=== PATIENT | male | born 1935 | race Caucasian/White ===

== ENCOUNTER 2024-03-02 20:20 | Inpatient (IN) | payer MEDICARE, BC, SELFPAY ==
[2024-03-02] VITALS (19 sets, daily range): BP systolic 77–206; BP diastolic 43–186; BMI 31.0; BMI 30.4
[2024-03-02 17:27] LABS: % Basophils 0.5 % (0-2); % Eosinophils 0.8 % (0-6); % Immature Granulocytes 0.6 % (0-0.5); % Monocytes 8.7 % (1.7-9.3); % Neutrophils 77.4 % (42.2-75.2); Absolute Basophils 0.1 10^3/uL (0-0.2); Absolute Eosinophils 0.1 10^3/uL (0-0.7); Absolute Immature Granulocytes 0.1 10^3/uL (0-0.05); Absolute Lymphocytes 1.3 10^3/uL (1.2-3.4); Absolute Monocytes 0.9 10^3/uL (0.1-0.6); Absolute Neutrophils 8.3 10^3/uL (1.4-6.5); Hematocrit 41.9 % (39.0-52.0); Hemoglobin 14.5 g/dL (13.0-18.0); Mean Corp Hgb Conc. 34.6 g/dL (33.0-37.0); Mean Corpuscular Hgb 31.2 pg (27.0-31.0); Mean Corpuscular Volume 90.1 fL (80.0-94.0); Mean Platelet Volume 9.9 fL (7.4-10.4); Nucleated Red Blood Cells % 0 % (-); Platelet Count 260 10^3/uL (130-400); Red Blood Cell Count 4.65 10^6/uL (4.70-6.10); White Blood Cell Count 10.7 10^3/uL (4.8-10.8)
[2024-03-02] MEDS: NSS 500 IV (17:31)
--- NOTE | 2024-03-02 17:33 | ED.GENMED ---
History of Present Illness
General
Chief Complaint: Dizziness
Source: patient
Time Seen by Provider: 03/02/24 17:20
History of Present Illness
History of Present Illness:
88-year-old male brought to the emergency room by ambulance from [employer]. Patient was evidently at [employer] with his caregiver when he began to feel dizzy and lightheaded. Paramedics found him to be bradycardic in the 40s. They measured a
blood pressure of 84/40. They gave the patient 1 mg of atropine and started IV fluids. Patient arrives here awake, alert. He has dementia so is unable to provide any significant history but denies chest pain, shortness of breath.
Phy Exam
Physical Exam
Physical Exam:
General: Awake, Alert, Oriented X2. No acute distress, appears stated age
Vitals: unremarkable
Head: Atraumatic
Eyes: Pupils equal, EOMI
Throat: Airway intact, no exudates, topical
Neck: Trachea midline
Lungs: Clear and equal b/l
Heart: Bradycardic, regular rate, 2/6 systolic murmur murmurs
Abd: Soft, Nontender, No pulsatile mass
Neuro: Nonfocal
Skin: Warm, dry, no rash
Extremities: pulses equal b/l, no edema
Course
Orders/Labs/Results
Orders:
Orders
03/02/24 17:10
Electrocardiogram (*1) Urgent
Reason for Study: Chest Pain
Cardiac Monitoring- Treatment ONCE
EKG- Treatment ONCE
IV Insert/Care/Rem.- Treatment PRN
O2 Therapy [RESP] Urgent
Titrate/Wean O2 to maintain O2 sat greater than (%): 90
Special Instructions: Maintain sats >/=90%
Pulse Ox/spot Check [RESP] Urgent
Quantity: 1
Special Instructions: ON ROOM AIR
03/02/24 17:20
Complete Blood Count/With Diff Urgent
Comprehensive Metabolic Panel Urgent
Digoxin Urgent
Comment: ADD ON
Prothrombin Time Urgent
Troponin I Urgent
03/02/24 17:30
0.9% Sodium Chloride 500 ml [Nss] 500 ml IV BOLUS
03/02/24 18:26
Add On- LAB Urgent
Tests Added?: Digoxin level
03/02/24 19:43
Admit/Transfer Patient As Directed
Co-Sign Provider:
Level of Care: Inpatient admission
Assign to:: IVU
Physician / Group: Andrews
Diagnosis: Symptomatic Bradycardia
Reason for Hospitalization: Symptomatic Bradycardia
Expected length of stay greater than two midnights?: Yes
ELOS- Estimated Length of Stay in days: 2
I certify the patient meets the requirements for IP care: Yes
PRN Pain Medication Management As Directed
May give lesser potent ordered pain med per pt: Yes
preference::
Protocol:: Medication orders for pain may be administered in a
manner that supports deferring to patient preference
when the pt is:
- Requesting an ordered lesser potent pain medication.
Least to most potent pain medications are defined
as: acetaminophen < NSAID < tramadol < opioids
(morphine, oxycodone, hydromorphone).
- Requesting a lesser dose of the same medication IF
ORDERED.
- Requesting a less intrusive route of administration
if both routes are prescribed by the provider (PO <
IV).
03/02/24 19:45
COVID-19 Antigen Urgent
Source: Nasal Swab
CXR Port [CR Chest Portable - 1 View] Urgent
Comment:
Reason For Exam: Syncope, SOB
Reason Study Needs to be Portable: Unable to Transport
03/02/24 19:47
Code Status As Directed
Resuscitation Status: Full Code
03/02/24 19:56
Pro-BNP [NT-proBNP] Urgent
Abnormal Lab Results
03/02/24
17:20
RBC 4.65 L 10^6/uL
(4.70-6.10)
MCH 31.2 H pg
(27.0-31.0)
Abs Immat Gran (auto) 0.1 H 10^3/uL
(0-0.05)
Absolute Neuts (auto) 8.3 H 10^3/uL
(1.4-6.5)
Absolute Monos (auto) 0.9 H 10^3/uL
(0.1-0.6)
Immature Gran % 0.6 H %
(0-0.5)
Neutrophils % 77.4 H %
(42.2-75.2)
Lymphocytes % 12.0 L %
(20.5-51.1)
PT 33.7 H Sec
(11.4-14.6)
BUN 31 H mg/dl
(9-20)
Glucose 105 H mg/dl
(70-99)
Digoxin 0.4 L ng/ml
(0.8-2.0)
03/02/24 17:20
03/02/24 17:20
Vital Signs
Initial and Last Documented VS:
Initial Vital Signs
Pulse Resp
46 17
03/02/24 17:09 03/02/24 17:09
Last Documented Vital Signs
Temp Pulse Resp BP Pulse Ox
98.3 F 72 15 115/74 96
03/02/24 17:23 03/02/24 18:30 03/02/24 18:45 03/02/24 18:45 03/02/24 18:45
MDM/Problems Addressed
Differential Diagnosis Includes:
Tachybradycardia syndrome, excessive beta-benito effect, dig toxicity, electrolyte abnormality
MDM/Problems Addressed:
Patient presents with a near syncopal event as well as bradycardia. On the monitor he is observed to have pauses up to 3 to 4 seconds. He has no chest pain. He is mentating. He was hypotensive in the field but arrives here with a normal blood
pressure. He did have a couple measurements' blood pressure which responded to IV fluid. Labs show a subtherapeutic digoxin level. Electrolytes are normal. Patient will be hospitalized for close monitoring of his heart rate and blood pressure.
Cardiology consultation obtained. Dr. Spear came to evaluate the patient.
Chronic conditions affecting care: HTN and Arrhythmia
*Radiology
Radiology exam reviewed: radiology read reviewed
*Pulse Oximetry
Patient hypoxic: no
*EKG
Interpreted by ED Provider?: Yes
Interpretation: abnormal
Heart Rate: 45
Rate: bradycardiac
Rhythm: junctional
QRS Pattern: normal QRS
Ischemia: non-specific ST changes
*Foam Rubber Curer Interpretation
Rate: bradycardiac
Rhythm: junctional
*Critical Care Note
Total Time (30-74mins, 75-104mins- exclusive of procedures): 45 min
comment:
Critical care statement: A total of 45 minutes of critical care time was provided for this patient. This includes management of unstable vital signs, evaluation of the patient at bedside, reviewing the patient's pertinent medical records, discussion
with consultants, review of old EKGs and review of pertinent medical records. This time with separate from time utilized to perform the aforementioned documented procedures
ED Attending Note
-
Portions of this chart may have been created with voice recognition software.� Occasional wrong word or��sound alike� substitutions may have occurred due to the inherent limitations of voice recognition software.
Discharge Plan
Departure
Patient Disposition: Admit
Date of Disposition: 03/02/24
Time of Disposition: 19:12
Admit to: ICU
Presentation/result/management discussed w/ accepting MD/DO: Hospitalist
Condition: Serious
Discharge Problem:
Near syncope, Bradycardia
Interventions
Interventions:
*Risk Screen - Suicide Last Done: 03/02/24 17:11
*General Assessment Last Done: 03/02/24 17:11
*Neglect/Abuse Screening Last Done: 03/02/24 17:11
ED- Fall Risk Assessment Last Done: 03/02/24 17:11
*ED COVID-19 Vaccine History Last Done: 03/02/24 18:17
ED- Neurological Assessment Last Done: 03/02/24 17:12
ED- Cardiac Assessment Last Done: 03/02/24 17:25
ED Swallowing Screen Last Done: 03/02/24 17:31
[2024-03-02 17:36] LABS: INR 3.32; PT 33.7 Sec (11.4-14.6)
[2024-03-02 17:42] LABS: ALT (SGPT) 25 U/L (0-50); AST (SGOT) 32 U/L (17-59); Albumin 3.9 g/dl (3.5-5.0); Alkaline Phosphatase 86 U/L (38-126); Blood Urea Nitrogen 31 mg/dl (9-20); Calcium 9.1 mg/dl (8.4-10.2); Carbon Dioxide 28 mmol/L (22-30); Chloride 102 mmol/L (98-107); Estimated Creatinine Clearance 44 ml/min; Glucose 105 mg/dl (70-99); Potassium 4.6 mmol/L (3.5-5.1); Sodium 141 mmol/L (135-145); Total Bilirubin 0.7 mg/dl (0.2-1.3); Total Protein 6.6 g/dl (6.3-8.2); eGFR 58.17
[2024-03-02 17:53] LABS: Troponin I 0.018 ng/ml
[2024-03-02 19:01] LABS: Digoxin 0.4 ng/ml (0.8-2.0)
--- NOTE | 2024-03-02 19:17 | CON.CAR ---
Consultation
Consultation Request
Date/Time Consultation Requested: 03/02/2024 7 PM
Date/Time Consultation Performed: 03/02/2024 7:15 PM
Requesting Provider: Dr. Hickey
Performing Provider: Dr. Branch
Reason for Consultation: Bradycardia, syncope
Medical History
-
History of Present Illness:
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
88-year-old male with a history of paroxysmal atrial fibrillation who presents near syncope. History obtained by his cyber systems administrator who was with him today. Apparently patient was in [employer] and shortly after getting in [employer] felt dizzy and was
a little confused his cyber systems administrator was able to problem up against the wall and then get him into a scooter but then he still felt weak and dizzy and sometimes his head was slumped down but no clear syncope. Brought to ER by ambulance patient was noted
to be bradycardic. Question of whether patient was given epinephrine or atropine en route. Initial blood pressure was stable per Dr. Hickey's report but then he had some hypotension without significant change in rhythm. This responded to IV
fluids. Blood pressure has since remained stable. Heart rate is currently 60 bpm. Patient is in atrial fibrillation has had some asymptomatic pauses with longest being 3.7 seconds in the ER.. Initial ECG showed atrial fibrillation with slow
ventricular response/junctional escape with a heart rate of 45 bpm.
Patient has a history of paroxysmal atrial fibrillation it sounds as if there has been issues with accelerated rates and there were discussions about a pacemaker in the past but then rates became more controlled. Then about 3 months ago he was
relatively bradycardic with a heart rate of 60 bpm which was much lower than his heart rates normal ER they held his meds for a day and then resume them and his heart rates seem to be stable. He has some issues with venous insufficiency and some
chronic lower extremity edema. He reportedly had an echocardiogram which showed good heart function and good valves it sounds as if there was some evidence of pulmonary hypertension. Decision was made to increase patient's diuretic a week ago from
Lasix 20 mg a day to Lasix 40 mg a day
Review of systems he has had an infection involving his left ear and has been on antibiotics for a week ear is still erythematous. No fevers
No rate control medications include Cardizem 120 mg a day metoprolol and digoxin. Digoxin level 0.4. Anticoagulation with Xarelto last dose of medications at 2 PM on 03/02/2024
Past medical history
Paroxysmal atrial fibrillation
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
Previous neck surgery
Hernia repair
Past Medical History
Past Medical History: Other (As noted above)
Social History
Tobacco: Non-Smoker
Employment: Other (Sister in [place] is [employer] but his cyber systems administrator Jennifer is very involved in his care and does all his medications and doses history well. )
Family History
Family History: Other (No known family history of premature coronary disease)
Allergies / Home Medications
Allergy/AdvReac Type Severity Reaction Status Date / Time
No Known Allergies Allergy Unverified 03/02/24 17:09
�Medication �Instructions �Recorded �Confirmed �Type
calcium polycarbophil 625 mg 625 mg PO DAILY@199903/02/24 03/02/24 History
tablet (FiberCon)
cefadroxil 1 gram tablet 1 g PO BID 03/02/24 03/02/24 History
digoxin 125 mcg (0.125 mg) tablet 125 mcg PO DAILY@139903/02/24 03/02/24 History
diltiazem HCl 120 mg 120 mg PO DAILY@139903/02/24 03/02/24 History
capsule,extended release 24 hr
(Cartia XT)
escitalopram oxalate 5 mg tablet 5 mg PO DAILY@139903/02/24 03/02/24 History
finasteride 5 mg tablet 5 mg PO DAILY@139903/02/24 03/02/24 History
furosemide 40 mg tablet 40 mg PO DAILY@139903/02/24 03/02/24 History
loperamide 2 mg tablet (Imodium 2 mg PO Q4HPRN PRN loose stool 03/02/24 03/02/24 History
A-D)
metoprolol succinate 100 mg 100 mg PO DAILY@139903/02/24 03/02/24 History
tablet,extended release 24 hr
multivit,Ca,min-iron 8 mg-folic 1 tab PO DAILY@199903/02/24 03/02/24 History
acid 200 mcg-lycopene 600 mcg
tablet (Centrum Men)
rivaroxaban 20 mg tablet (Xarelto) 20 mg PO DAILY@139903/02/24 03/02/24 History
tamsulosin 0.4 mg capsule 0.4 mg PO DAILY@199903/02/24 03/02/24 History
triamcinolone acetonide 0.1 % 1 applic topical BID 03/02/24 03/02/24 History
topical ointment
trospium 60 mg capsule,extended 60 mg PO DAILY@99903/02/24 03/02/24 History
release 24 hr
Review of Systems
-
All other systems: Negative unless noted
Physical Exam
Vital Signs
Temp Pulse Resp BP Pulse Ox
98.3 F 72 15 115/74 96
03/02/24 17:23 03/02/24 18:30 03/02/24 18:45 03/02/24 18:45 03/02/24 18:45
Lab Results
03/02/24 17:20
03/02/24 17:20
Troponin I 0.018 ng/ml 03/02/24 17:20
Physical Exam
General: No Apparent Distress
HEENT: Normocephalic, Anicteric and Other (Pupils are equal. There are some erythema of the left ear. Nontender with palpation.)
Respiratory: Clear (No wheezes rales or rhonchi)
Cardiac: Irregular Rhythm (Without murmurs) and Other ( )
GI: Soft, Non Tender, Non Distended, Normal Bowel Sounds and Other (No masses no Passman megaly detected)
Musculoskeletal: No Clubbing, No Cyanosis and No Edema
Skin: Warm, Dry and Other (Chronic venous stasis changes lower extremities he has some compression sleeves on his legs without significant edema)
Neuro: Awake and Alert
Hematologic/Lymphatic: No Lymphadenopathy
Psych: Calm
Impression / Plan
-
Near syncope. Patient noted to be bradycardic on presentation with junctional bradycardia and a heart rate of 45 now heart rates in the 60s. Pauses up to 6.7 seconds but no longer pauses. Symptoms may have been due to bradycardia but may have
also been a component of volume depletion in this patient who recently had his Lasix dose increased.
-Stop rate control meds including but metoprolol digoxin and Cardizem.
-With presentation with syncope, bradycardia, pauses and prior history of accelerated A-fib patient may ultimately require pacing for tachybradycardia.
-Hold anticoagulation in anticipation of pacemaker
-Hold diuretic
-Echocardiogram in a.m.
-Will try to obtain additional information from primary calender machine operator in a.m.
.
Bradycardia. Patient with junctional bradycardia and underlying A-fib on initial ECG. Now with A-fib with heart rate in the 60s and occasional pauses between 3 and 3.7 seconds
-Holding rate control meds including metoprolol, Cardizem and diltiazem as noted above
-Hold Xarelto in anticipation of possible procedure
.
A-fib. Patient with prior history of A-fib. Suspect persistent or permanent. Recent issues with accelerated rates based on history. Now with bradycardia.
-Currently on anticoagulation. Will hold in anticipation of procedure.
-Holding rate control meds due to issues noted above
Hypotension. Patient had hypotension in the ER with response to IV fluids. Some of patient's hypotension earlier today may have been to slower heart rates but also component may have been due to volume depletion. Would also check chest x-ray and
urinalysis and assess for other causes of hypotension including infection.
.
Left ear cellulitis. Patient currently on antibiotics additional treatment as directed by primary team
Data Reviewed
-
EKG: Report Reviewed by me
Medical Tests (Nuc Med, Echo etc): Report Reviewed by me
Labs: Labs Reviewed by me
--- NOTE | 2024-03-02 19:48 | HPS.HSE ---
Family Physician
-
Family Physician: Navid Lockwood
Chief Complaint
-
Woozy
History of Present Illness
Patient is an 88y M with PMH significant for atrial fibrillation who presents to ED complaining of feeling woozy this afternoon. History obtained from patient and his caregiver at the bedside. Patient was feeling fairly well this AM. He did
his usual stationary cycle exercises, showered and went to a Dermatology visit this afternoon. He had a small biopsy done to the R hand and some areas of cryo on the face. No general anesthesia, etc administered.
Following that appointment, patient went to [employer] where he noted that he began to feel woozy as if he might pass out. He leaned against the wall on his R side to stabilize himself. He did not fall. He did not lose consciousness. He did not
injure himself.
EMS was called and patient was noted to be bradycardic and hypotensive on initial evaluation.
Patient was brought to the ED for further evaluation.
At the time of my examination, patient is awake and alert. He feels somewhat 'tired' but has no other complaints.
His caregiver notes that he is followed by [facility] usually. 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
She reports an episode about 3 months ago when his heart rate was in the 60s. He held his meds for 24 hours and then resumed them. No other changes were made and he has had no issues since.
He apparently had a recent echo done with his Type Proof Reproducer. Following that study his Lasix dose was increased from 20mg daily to 40mg daily - this was one week ago.
He is also on cefadroxil for a celllitis of the R ear lobe. he has nearly completed his 7 days of therapy.
No other new medications or recent medication changes.
Patient does note some dry, scratchy throat and a non-productive cough. No fevers / chills. No GI or symptoms.
Medical History
Past Medical History
Past Medical History: Reports Other
Additional Past Medical History:
Atrial Fibrillation - Unknown Type
Tachy-Darryn Syndrome
Childhood Encephalitis with Persistent Cognitive Impairment
Chronic Venous Stasis / Venous Insufficiency
BPH / OAB
Past Surgical History: Reports Other
Additional Past Surgical History:
Cervical Fusion
RUE ORIF
Hernia Repair
Social History
Tobacco: Non-smoker
Alcohol: Occasional (Rarely)
Drug: None
Family History
Family History: Not pertinent
Allergies / Home Medications
Allergies reflects when Allergies were last updated in [employer].
Home Medications with original date entered in [employer]
Allergy/Medication List:
Allergies
Allergy/AdvReac Type Severity Reaction Status Date / Time
No Known Allergies Allergy Unverified 03/02/24 17:09
Home Medications
calcium polycarbophil 625 mg tablet (FiberCon) 625 mg PO DAILY@199903/02/24
cefadroxil 1 gram tablet 1 g PO BID 03/02/24
digoxin 125 mcg (0.125 mg) tablet 125 mcg PO DAILY@139903/02/24
diltiazem HCl 120 mg capsule,extended release 24 hr (Cartia XT) 120 mg PO DAILY@139903/02/24
escitalopram oxalate 5 mg tablet 5 mg PO DAILY@139903/02/24
finasteride 5 mg tablet 5 mg PO DAILY@139903/02/24
furosemide 40 mg tablet 40 mg PO DAILY@139903/02/24
loperamide 2 mg tablet (Imodium A-D) 2 mg PO Q4HPRN PRN loose stool 03/02/24
metoprolol succinate 100 mg tablet,extended release 24 hr 100 mg PO DAILY@139903/02/24
multivit,Ca,min-iron 8 mg-folic acid 200 mcg-lycopene 600 mcg tablet (Centrum Men) 1 tab PO DAILY@199903/02/24
rivaroxaban 20 mg tablet (Xarelto) 20 mg PO DAILY@139903/02/24
tamsulosin 0.4 mg capsule 0.4 mg PO DAILY@199903/02/24
triamcinolone acetonide 0.1 % topical ointment 1 applic topical BID 03/02/24
trospium 60 mg capsule,extended release 24 hr 60 mg PO DAILY@99903/02/24
Review of Systems
-
History Source: Patient and Other (Caregiver)
A 12 point ROS was completed and negative except as noted: Yes
Constitutional: Reports Fatigue; Denies Fever or Chills
EENT: Reports Sore Throat
Respiratory: Reports Cough; Denies Hemoptysis or Trouble Breathing
Cardiac: Reports Syncope (Near syncope / lightheadedness); Denies Chest Pain or Palpitations
Abdomen/GI: Denies Abdominal Pain, Nausea, Vomiting or Diarrhea
: Denies Dysuria, Frequency or Flank Pain
Musculoskeletal: Denies Joint Pain or Edema
Skin: Reports Other (Chronic venous stasis skin changes.)
Neurological: Denies Dizzy or Headache
Psych: Denies Depression or Anxiety
Physical Exam
Vital Signs
Vital Signs
Temp Pulse Resp BP Pulse Ox
98.3 F 72 15 115/74 96
03/02/24 17:23 03/02/24 18:30 03/02/24 18:45 03/02/24 18:45 03/02/24 18:45
Physical Exam
General: Other (88y M in no acute distress.)
HEENT: Other (Dry MM. Neck supple. No JVD.)
Respiratory: Other (Bibasilar rales about 1/4 up. No wheeze / rhonchi.)
Cardiac: S1/S2 and Irregular Rhythm; No Murmur
GI: Soft, Non Tender, Non Distended and Normal Bowel Sounds
Musculoskeletal: No Clubbing, No Cyanosis and Other (Trace edema with chronic venous stasis skin changes.)
Neuro: AO x 3 and Nonfocal/grossly intact
Laboratory Results
-
03/02/24 17:20
03/02/24 17:20
Laboratory Results
PT 33.7 Sec (11.4-14.6) H 03/02/24 17:20
INR 3.32 03/02/24 17:20
Total Bilirubin 0.7 mg/dl (0.2-1.3) 03/02/24 17:20
AST 32 U/L (17-59) 03/02/24 17:20
ALT 25 U/L (0-50) 03/02/24 17:20
Alkaline Phosphatase 86 U/L (38-126) 03/02/24 17:20
Troponin I 0.018 ng/ml 03/02/24 17:20
Impression/Plan
-
A/P: Patient is an 88y M with PMH significant for A-Fib and venous insufficiency who presents to ED complaining of 'woozy' feeling and near syncope.
Symptomatic Bradycardia
Near Syncope
- Admit to IVU for further evaluation and treatment.
- Reported pause of 5 seconds for EMS.
- Now in A-Fib with rates in the 60-70 range with rare pause around 3 seconds.
- No persistent symptoms. No chest pain.
- Hold chronotropic medications.
- Cardiology evaluation.
- Monitor on tele for any further darryn / pauses / etc.
- Try to obtain recent outpatient records from [facility].
Atrial Fibrillation - Unknown Type
- Hold Xarelto for now in the event that any procedure / intervention is required.
- Holding chronotropic meds as noted above given bradycardia.
Coagulopathy
- INR = 3.32 which seems unusual for patient on Xarelto.
- LFTs are unremarkable.
- No evidence of significant blood loss at present.
- Follow for changes.
Abnormal Lung Sounds
- Rales on exam at bases - ? atelectasis, edema, interstitial.
- Check CXR. Check COVID status.
- Check BNP.
- Adjust diuretic dose if needed.
OAB / BPH
- Hold most medications including Tamsulosin which can contribute to orthostasis.
- Follow orthostatic signs.
- Bladder scan protocol.
Left Ear Lobe Cellulitis
- Mild persistent erythema, but no tenderness / increased warmth / etc.
- Complete cefadroxil x 1 more day.
- Follow for any new / worsening symptoms.
DVT Prophylaxis: SCDs for now. Resume Xarelto when able.
Code Status: Full
[2024-03-02 21:08] LABS: COVID-19 Antigen Negative (Negative)
[2024-03-02 21:20] LABS: NT-proBNP 1350 pg/ml; Troponin I 0.028 ng/ml
[2024-03-02 22:23] LABS: TSH Reflex To Free T4 6.77 uIU/ml (0.47-4.68)
[2024-03-02 22:52] LABS: Free T4 0.85 ng/dl (0.78-2.19)
[2024-03-03] VITALS (14 sets, daily range): BP systolic 103–152; BP diastolic 57–94; PULSE 62–87; BMI 30.4
[2024-03-03] MEDS: KEFLEX 500 MG PO ×4 (00:12→17:37)
--- NOTE | 2024-03-03 00:22 | PTCARENOTE ---
Pt admit to IVU ~2039. HR afib 60s-100 w/ occasional 2 second pauses. Pt belongings w/ pt - clothes and wallet taken to pt's home by caregiver Siri. Bed alarm placed on pt due to PMHx of dementia. Pt AAOx3, neuro intact - neuro check q4h. Pt
voiding into urinal. Updated pt on plan of care an NPO status at 0000. Pt states understanding. Pt states they have occasional lightheadedness/dizziness. BP stable. Informed to notify RN if wooziness returns, call fry within reach.
[2024-03-03 02:39] LABS: Hematocrit 41.4 % (39.0-52.0); Hemoglobin 14.4 g/dL (13.0-18.0); Mean Corp Hgb Conc. 34.8 g/dL (33.0-37.0); Mean Corpuscular Hgb 31.2 pg (27.0-31.0); Mean Corpuscular Volume 89.6 fL (80.0-94.0); Mean Platelet Volume 9.8 fL (7.4-10.4); Platelet Count 226 10^3/uL (130-400); Red Blood Cell Count 4.62 10^6/uL (4.70-6.10); Red Cell Dist. Width 14.2 % (11.5-14.5); White Blood Cell Count 9.5 10^3/uL (4.8-10.8)
[2024-03-03 02:50] LABS: INR 2.02; PT 22.7 Sec (11.4-14.6)
[2024-03-03 03:06] LABS: Blood Urea Nitrogen 28 mg/dl (9-20); Calcium 9.1 mg/dl (8.4-10.2); Carbon Dioxide 30 mmol/L (22-30); Chloride 103 mmol/L (98-107); Estimated Creatinine Clearance 51 ml/min; Glucose 87 mg/dl (70-99); Magnesium 2.1 mg/dl (1.6-2.3); Potassium 4.3 mmol/L (3.5-5.1); Sodium 140 mmol/L (135-145); eGFR > 60.00
[2024-03-03 03:11] LABS: Troponin I 0.018 ng/ml
--- NOTE | 2024-03-03 08:23 | W.PN.CD ---
Today's Communication / Plan
-
-Keep on telemetry
-Keep Zoll pads on
-Plan for pacemaker in the morning�leadless versus single-chamber
Impression / Plan
-
Near syncope.
-Tachybradycardia syndrome.
-Patient has junctional rhythm down to 40s with symptomatic pauses.
-Also has a history of persistent/permanent atrial fibrillation.
-With permanent atrial fibrillation, patient needs to be adequately rate controlled requiring metoprolol, digoxin and diltiazem.
-With symptomatic pauses, we discussed pacemaker. Options include leadless pacemaker versus single-chamber pacemaker.
-Will discuss with caregiver as patient himself may not have adequate insight into the decision-making
-Hold anticoagulation in anticipation of pacemaker
-Hold diuretic
-Echocardiogram today.
-Will try to obtain additional information from primary pest controller in a.m.
-Likely pacemaker tomorrow. N.p.o. after midnight.
.
Bradycardia.
-As above. Patient is in need of a pacemaker.
.
A-fib. Patient with prior history of A-fib. Suspect persistent or permanent. Recent issues with accelerated rates based on history. Now with bradycardia.
-Currently on anticoagulation. Will hold in anticipation of procedure.
-Holding rate control meds due to issues noted above
Hypotension.
-Likely related to multiple medications and hypovolemia/dehydration. Responded adequately to IV fluids.
-Holding Lasix at this time.
.
Left ear cellulitis.
-Patient currently on antibiotics additional treatment as directed by primary team
Physical Exam
Vital Signs/Labs
Vital Signs
Temp Pulse Resp BP Pulse Ox
98.3 F 84 20 119/90 94
03/03/24 07:15 03/03/24 07:45 03/03/24 07:15 03/03/24 07:17 03/03/24 07:15
08/03/03/24 03/04/24
06:59 06:59 06:59
Actual Weight 83 kg
03/03/24 02:31
03/03/24 02:31
PT 22.7 Sec (11.4-14.6) H 03/03/24 02:31
INR 2.02 03/03/24 02:31
Magnesium 2.1 mg/dl (1.6-2.3) 03/03/24 02:31
Free T4 0.85 ng/dl (0.78-2.19) 03/02/24 17:20
Digoxin 0.4 ng/ml (0.8-2.0) L 03/02/24 17:20
03/02/24
20:10
Twb-K-Xiwliofoatv Pept 1350
LAB Results
03/02/24 03/02/24 03/03/24
17:20 20:10 02:31
Troponin I 0.018 0.028 D 0.018 D
Physical Exam
Constitutional: No acute distress and Comfortable
EENT: Anicteric and Moist mucous membranes
Cardiovascular: JVD pressure is normal, Rhythm/rate is irregular, Pedal edema present and Systolic murmur present
Respiratory: Respiratory effort normal, Crackles Absent and Rhonchi Absent
GI: Soft, Non tender and Normal bowel sounds
Neuro/Psych: Alert and Motor deficits absent
Data Reviewed
-
Date of Service: March 03, 2024
Medical Decision Making: Reviewed Test Results, Independent Historian Assessment, Test Interpretation and Review of Case with other Provider
EKG: Tracing Personally Visualized and interpreted
X-Ray/CT/US/MRI/NUC/PET: Image Personally Visualized and interpreted
Labs: Labs Reviewed by me
Old Records: Reviewed
--- NOTE | 2024-03-03 08:46 | PTCARENOTE ---
Received patient this morning resting in bed, offers no complaints. NPO at this time, waiting to be seen by his physician, troponin sent as ordered. Bed alarm in place and activated, call fry in reach.
--- NOTE | 2024-03-03 09:21 | W.PN.HOSP.TC ---
Today's Communication/Plan
-
For permanent pacemaker tomorrow
Assessment / Plan
Assessment / Plan
88y M with PMH significant for A-Fib and venous insufficiency who presents to ED complaining of 'woozy' feeling and near syncope.
Symptomatic Bradycardia
Near Syncope
Tachybradycardia syndrome
- Reported pause of 5 seconds for EMS.
- Now in A-Fib with rates in the 60-70 range with rare pause around 3 seconds.
- Appreciate cardiology input, keep Zoll pads on, plan for permanent pacemaker tomorrow
- Hold Xarelto, metoprolol, diltiazem, digoxin
Atrial Fibrillation - Unknown Type
- Hold Xarelto, metoprolol, diltiazem, digoxin
Hypotension
� Resolved with IV fluids
- Monitor off IVFs
Coagulopathy
- INR = 3.32 upon admission, now downtrending
Abnormal Lung Sounds
- Rales on exam at bases - ? atelectasis, edema, interstitial.
- Chest x-ray shows cardiomegaly without pulmonary edema, COVID-negative
OAB / BPH
- Hold most medications including Tamsulosin which can contribute to orthostasis.
- Bladder scan protocol.
Left Ear Lobe Cellulitis
- Mild persistent erythema, but no tenderness / increased warmth / etc.
- Complete cefadroxil x 1 more day.
DVT Prophylaxis: SC lovenox for now. Resume Xarelto when able.
Code Status: Ful
Total time spent to see the patient on the floor, examine the patient, review data and lab results, discuss treatment plan with patient, nursing staff around 50 minutes.
Physical Exam
General: Obese, no acute distress
HEENT: Normocephalic, Atraumatic, EOMI, MMM
Respiratory: Clear to Auscultation bilaterally
Cardiac: Normal S1/S2, irregularly irregular
GI: Soft, Nontender, Nondistended, Normal Bowel Sounds
Extremities: No Clubbing, Cyanosis, or Edema
Neuro: Nonfocal/Grossly Intact
Anticipated Discharge: 24 - 48 hours
Subjective/Interval History
-
Date of Service: March 03, 2024
Patient denies lightheadedness, dizziness. No chest pain, no shortness of breath. No fever, no vomiting.
Objective Data
-
Labs:
Laboratory Results
03/03/24
02:31
WBC 9.5
Hgb 14.4
Hct 41.4
Plt Count 226
PT 22.7 H
INR 2.02
Sodium 140
Potassium 4.3
Chloride 103
Carbon Dioxide 30
BUN 28 H
Creatinine 1.0
Glucose 87
Calcium 9.1
Vital Signs:
Vital Signs
Temp Pulse Resp BP Pulse Ox
98.3 F 84 20 119/90 94
03/03/24 07:15 03/03/24 07:45 03/03/24 07:15 03/03/24 07:17 03/03/24 07:15
I&O
03/02/24 03/03/24 03/04/24
06:59 06:59 06:59
Intake Total 600 / 600
Output Total 725 / 725
Balance -125 / -125
[2024-03-03 09:27] LABS: Troponin I < 0.012 ng/ml
[2024-03-03] MEDS: DETROL LA 2 MG PO (09:42)
[2024-03-03] MEDS: FLUSH (NSS) 2 FLUSH IV (09:42)
--- NOTE | 2024-03-03 10:50 | PTCARENOTE ---
Orthostatic VS were done which were negative. While lying in bed patient had 3.2 sec pause and darryn'd down to 32- did report feeling dizzy. Seen earlier by Dr. Peña who was notified of episode. Plan is for pacemaker tomorrow, patient is
permitted to eat today. Call fry in reach.
--- NOTE | 2024-03-03 12:32 | PTCARENOTE ---
Patient's sister Fatoumata telephoned earlier today for an update. Telephoned Fatoumata who is the patient's POA and informed her that plan was for a pacer tomorrow. She states her brother's caregiver Siri has been with her brother for 16 years
and is in charge of his affairs but that she is medical POA.
--- NOTE | 2024-03-03 13:16 | CM ---
Chart reviewed. Patient is independent of ADLS, lives alone in a 1st floor apartment, ambulates with a SPC, 0 FRANCESCO. Patient with a caregiver who comes to the house every Friday to help assist with groceries and cleaning. She also takes the
patient to his doctor appointments. Patient also pays a glassware maker demonstrator to come to the house every Friday. Patient is interested in VN. Referral sent to [facility]. Plan is for the patient to return home with [facility]. COLTEN to follow
[2024-03-03] MEDS: LEXAPRO 5 MG PO (15:12)
[2024-03-03] MEDS: PROSCAR 5 MG PO (15:12)
[2024-03-03] MEDS: LOVENOX 40 MG SC (17:38)
[2024-03-04] VITALS (33 sets, daily range): BP systolic 105–160; BP diastolic 63–123; BMI 30.2
--- NOTE | 2024-03-04 00:06 | PTCARENOTE ---
Tele monitor shows Afib w/ occasional PVCs. HR in the 60-80's at rest. Denies any pain or discomfort. Orthos negative. Pt requires uses RW when ambulating and requires standby assist. Denies any dizziness at this time. Patient aware of NPO status
d/t plan for PPM on 03/04. Call fry within reach, POC ongoing.
[2024-03-04 03:58] LABS: INR 1.32; PT 16.4 Sec (11.4-14.6)
--- NOTE | 2024-03-04 04:03 | PTCARENOTE ---
Morning labs obtained per order. Pt clipped and CHG wipes completed this am for planned PPM today. He remains NPO. Bed alarm remains active. Call fry within reach.
--- NOTE | 2024-03-04 08:18 | W.PN.HOSP.TC ---
Today's Communication/Plan
-
For permanent pacemaker today
Assessment / Plan
Assessment / Plan
88y M with PMH significant for A-Fib and venous insufficiency who presents to ED complaining of 'woozy' feeling and near syncope.
Symptomatic Bradycardia
Near Syncope
Tachybradycardia syndrome
- Reported pause of 5 seconds for EMS.
- Now in A-Fib with rates in the 60-70 range with rare pause around 3 seconds.
- Appreciate cardiology input, keep Zoll pads on, plan for permanent pacemaker today
- Hold Xarelto, metoprolol, diltiazem, digoxin
Atrial Fibrillation -probable permanent
- Hold Xarelto, metoprolol, diltiazem, digoxin
Hypotension
� Resolved with IV fluids
- Monitor off IVFs
Coagulopathy
- INR = 3.32 upon admission, now downtrending
Abnormal Lung Sounds
- Rales on exam at bases - ? atelectasis, edema, interstitial.
- Chest x-ray shows cardiomegaly without pulmonary edema, COVID-negative
OAB / BPH
- Hold most medications including Tamsulosin which can contribute to orthostasis.
- Bladder scan protocol.
Left Ear Lobe Cellulitis
- Mild persistent erythema, but no tenderness / increased warmth / etc.
- Complete cefadroxil x 1 more day.
Subclinical hypothyroidism
- TSH elevated at 6.77, free T4 normal
- Recommend outpatient repeat thyroid function test in 4-6 weeks
- Would not start thyroid supplementation now given he has tachybradycardia syndrome
DVT Prophylaxis: SC lovenox for now. Resume Xarelto when able.
Code Status: Full
Total time spent to see the patient on the floor, examine the patient, review data and lab results, discuss treatment plan with patient, nursing staff around 40 minutes.
Physical Exam
General: Obese, no acute distress
HEENT: Normocephalic, Atraumatic, EOMI, MMM
Respiratory: Clear to Auscultation bilaterally
Cardiac: Normal S1/S2, irregularly irregular
GI: Soft, Nontender, Nondistended, Normal Bowel Sounds
Extremities: No Clubbing, Cyanosis, or Edema
Neuro: Nonfocal/Grossly Intact
Anticipated Discharge: Within 24 hours
Subjective/Interval History
-
Date of Service: March 03, 2024
No lightheadedness, no dizziness. No chest pain, no shortness of breath. No fever, no vomiting.
Objective Data
-
Vital Signs:
Vital Signs
Temp Pulse Resp BP Pulse Ox
98.3 F 69 20 111/80 94
03/03/24 15:32 03/03/24 15:30 03/03/24 15:32 03/03/24 15:30 03/03/24 15:32
I&O
03/02/24 03/03/24 03/04/24
06:59 06:59 06:59
Intake Total 600 / 600 240 / 240
Output Total 725 / 725 200 / 200
Balance -125 / -125 40 / 40
[2024-03-04] MEDS: FLUSH (NSS) 2 FLUSH IV (08:39)
--- NOTE | 2024-03-04 09:17 | PTCARENOTE ---
Received patient this morning resting in bed, he is aware of need to remain NPO for pacemaker today. Assisted to stand at the side of the bed to urinate. Lying in bed now, call fry in reach, bed alarm in place and activated.
[2024-03-04] MEDS: DETROL LA PO (10:00)
--- NOTE | 2024-03-04 10:35 | PN.CDI ---
CDI
- -
CDI:
Physician Documentation Request
Admit Date: 03/02/24 20:20
Dear Doctor Do,
Clinical Indicators:
Patient admitted with Tachybradycardia syndrome; PMH includes paroxysmal atrial fibrillation.
03/02, 03/03 EKGs & tele monitoring: Atrial Fibrillation
03/02 Cardiology consult, 'Patient with prior history of A-fib. Suspect persistent or permanent.'
03/03 Cardiology PN, '-With permanent atrial fibrillation, patient needs to be adequately rate controlled requiring metoprolol, digoxin and diltiazem.'
03/03 PN, 'Atrial Fibrillation - Unknown Type'
Please clarify the type of atrial fibrillation:
Permanent atrial fibrillation - when a decision has been made to accept the presence of AF and there is no further attempt to restore or maintain sinus rhythm
Persistent atrial fibrillation - episodes of continuous AF that last more than 7 days and do not self-terminate
Paroxysmal atrial fibrillation - terminates spontaneously or with intervention within 7 days of onset
Other - please specify
Use of terms such as suspected, likely, concern for, or probable (associated with a specific diagnosis that is being evaluated, monitored, or treated as if it exists) are acceptable and can be coded in the inpatient setting, when documented at the
time of discharge.
Thank you,
Amy Bradshaw RN BSN
CDI Specialist
available via tiger text
Please use your independent medical judgment in providing your response.
--- NOTE | 2024-03-04 13:28 | CM ---
Chart reviewed. Patient is going for a PPM today. Chart reviewed. Patient is independent of ADLS, lives alone in a 1st floor apartment, ambulates with a SPC, 0 FRANCESCO. Patient with a caregiver, Siri, who comes to the house every Friday to
help assist with groceries and cleaning. She also takes the patient to his doctor appointments. Patient also pays a freight adjuster to come to the house every Friday. Patient is interested in VN. Referral sent to [facility]. Plan is for the
patient to return home with [facility]. CM to follow
[2024-03-04] MEDS: LEXAPRO PO (14:00)
[2024-03-04] MEDS: PROSCAR PO (14:00)
--- NOTE | 2024-03-04 14:22 | W.PN.CD ---
Today's Communication / Plan
-
- PPM today
Impression / Plan
-
Near syncope.
-Tachybradycardia syndrome.
-Patient has junctional rhythm down to 40s with symptomatic pauses.
-Also has a history of persistent/permanent atrial fibrillation.
-With permanent atrial fibrillation, patient needs to be adequately rate controlled requiring metoprolol, digoxin and diltiazem.
-With symptomatic pauses, we discussed pacemaker. Plan for leadless pacemaker
-Will discuss with caregiver as patient himself may not have adequate insight into the decision-making
-Hold anticoagulation in anticipation of pacemaker
-Hold diuretic
-Echocardiogram tomorrow after the PPM in place.
-I called Dr. Norman office. He is not available at this time.
-Called and discussed the case with his sister - EUGENIO. Consent obtained from the sister.
-Plan for leadless PPM today. If vascular access is an issue, then can plan for single chamber PPM from the arm.
.
Bradycardia.
-As above. Patient is in need of a pacemaker.
.
A-fib. Patient with prior history of A-fib. Suspect persistent or permanent. Recent issues with accelerated rates based on history. Now with bradycardia.
-Currently on anticoagulation. Will hold in anticipation of procedure.
-Holding rate control meds due to issues noted above
Hypotension.
-Likely related to multiple medications and hypovolemia/dehydration. Responded adequately to IV fluids.
-Holding Lasix at this time.
.
Left ear cellulitis.
-Patient currently on antibiotics additional treatment as directed by primary team
Physical Exam
Vital Signs/Labs
Vital Signs
Temp Pulse Resp BP Pulse Ox
98.5 F 73 20 146/84 95
03/04/24 12:31 03/04/24 13:00 03/04/24 12:31 03/04/24 12:33 03/04/24 12:33
03/03/24 03/04/24 03/05/24
06:59 06:59 06:59
Actual Weight 83 kg 82.4 kg
03/03/24 02:31
03/03/24 02:31
PT 16.4 Sec (11.4-14.6) H 03/04/24 03:37
INR 1.32 03/04/24 03:37
Magnesium 2.1 mg/dl (1.6-2.3) 03/03/24 02:31
Free T4 0.85 ng/dl (0.78-2.19) 03/02/24 17:20
Digoxin 0.4 ng/ml (0.8-2.0) L 03/02/24 17:20
03/02/24
20:10
Jmd-O-Thtgpjztcxz Pept 1350
LAB Results
03/02/24 03/02/24 03/03/24
17:20 20:10 02:31
Troponin I 0.018 0.028 D 0.018 D
03/03/24
08:40
Troponin I < 0.012 D
Physical Exam
Constitutional: No acute distress, Comfortable and Confusion
EENT: Anicteric and Moist mucous membranes
Cardiovascular: Rhythm/rate is irregular, JVD present and Systolic murmur present
Respiratory: Respiratory effort normal, Lungs clear to auscul. and Crackles Present
GI: Soft, Non tender and Normal bowel sounds
Neuro/Psych: Other (unclear mental status. )
Other: Skin
Data Reviewed
-
Date of Service: March 04, 2024
Medical Decision Making: Reviewed Test Results, Independent Historian Assessment and Test Interpretation
EKG: Tracing Personally Visualized and interpreted
Echo: Report Reviewed by me
Labs: Labs Reviewed by me
Old Records: Reviewed
--- NOTE | 2024-03-04 15:34 | PTCARENOTE ---
Patient taken for micra pacer.
--- NOTE | 2024-03-04 15:43 | PTCARENOTE ---
Patient's caregiver telephoned with phone numbers to reach Dr. Norman. Tt Dr. Peña with numbers however he stated the physician was on vacation and he was unable to reach him.
--- NOTE | 2024-03-04 16:39 | ITS.CL.PACE ---
[facility] - Pacemaker Implant
Pacemaker Implant
Procedure Report:
Leadless Pacemaker (Micra) Implantation:
Mr. Escalera is a very pleasant 88 yr old gentleman with permanent atrial fibrillation and tachy darryn syndrome with long pauses has baseline dementia, altered mental status and is recommended a ventricular pacemaker. With the increased risk of
infection, it was decided to pursue a leadless pacemaker.
Indications: tachy darryn syndrome
Date of the Procedure:
03/04/2024
Pre-Operative Diagnosis: Severe bradycardia with permanent atrial fibrillation.
Post-Operative Diagnosis: Severe bradycardia with permanent atrial fibrillation.
Procedure Performed: Leadless pacemaker placement
Performing Physician:
Obinna Peña MD
Anesthesia:
See anesthesia records
Detailed Description of the Procedure:
Written informed consent was obtained from the patient after a full explanation of the risks and benefits of the procedure including the risks of sedation and anesthesia.
The patient was brought to the electrophysiology laboratory in stable condition in fasting state. Continuous electrocardiographic and hemodynamic monitoring was initiated.
The initial rhythm was atrial fibrillation.
The procedure site was meticulously prepared with surgical scrub and allowed to dry with no pooling. Sterile draping was applied to cover the procedure site. The image intensifier was draped with sterile bag and positioned over the patient.
After infusion of local anesthetic, vascular access was obtained under ultrasound guidance and sheaths were placed over guide wire as detailed below.
The Amplatz glidewire was placed and venous access gradually dilated to 24 Fr. Then the 27 Fr Micra outer sheath was successfully and carefully advanced to the RA.
Leadless Pacemaker (Micra) implantation:
The delivery system of the Micra was prepped with removal of all air underwater and was advanced into the sheath to the RA with continuous saline irrigation. The sheath was pulled back to the IVC and the delivery sheath was advanced into the RV
cavity. The delivery system as placed against the ventricular septum using VASQUEZ and SERBIAN fluoroscopic views and the septal approximation was confirmed with contrast injection. Once adequate location was confirmed, the locked sutures were unlocked and
the Micra was slowly advanced pulling back the delivery sheath releasing the anchoring hooks. The Micra was attached successfully to the RV septum. The PM was tested and adequate sensing and threshold noted.
Next, the tug test was done with the pulling the attached suture under fluoroscopic guidance with the three anchors securely embedded and showed movement and widening of the anchors with pulling them. The PPM again was tested showing stable
thresholds and excellent sensing.
The one side of the suture was cut and the other side was gradually and carefully pulled until free. The delivery system sheath was pulled back to the IVC and the PPM was again tested showing stable numbers.
Device Information:
Medtronic Leadless (Micra) pacemaker-
����������� Model #: [id number]; Serial Number: [id number] @ RV septum
Darryn parameter settings were VVI 50 bpm. �
Measured data in the Micra was sensing of 19.9 mV, impedance of 680 ohms and the threshold of 0.25 V at 0.24ms.
Procedure End
Following the completion of the Micra implant, catheters were removed. The decision was made to also place a �figure of 8� sutures. The sheaths were removed and hemostasis achieved with manual compression.
Estimated Blood loss:
<5 cc
Specimens Removed:
None.
Implants / Devices:
None
Urine output:
None
Packs / Drains/ Tubes:
None
Instrument / Sponge Count Correct:
Yes
Complications of the Procedure:
None
Condition of Patient at Time of Transfer:
Hemodynamically stable with no neurological or vascular compromise.
Summary:
Successful implantation of MRI compatible Leadless ventricular pacemaker
--- NOTE | 2024-03-04 17:37 | PTCARENOTE ---
Received patient from PACU after micra pacer. Patient is sleepy but talkative and denies any pain or discomfort. Right groin dressing is dry and intact, with figure of 8 intact. Monitoring VS, reinforced importance of remaining on bedrest x 6 hours
and patient states his understanding.
[2024-03-04] MEDS: COZAAR 25 MG PO (21:03)
--- NOTE | 2024-03-04 23:06 | W.PN.UPDATE ---
Update Note
Progress Note Update
-came in to evaluate R groin for bleeding, which was discovered by his nurse. She held manual pressure for 20 min and bleeding stopped. Innoseal with gauze/tegaderm dressing was placed. Pt was A&O with stable sBP 100s-110s, in afib 90s-low 100s
throughout the episode, denied any lightheadedness or any new sxs. No hematoma, mass or pain at the site. Of note, pt has R inguinal hernia with bowels in the scrotum.
-will hold sq Lovenox, use SCD for DVT prophylaxis
-will continue to monitor
[2024-03-05] VITALS (17 sets, daily range): BP systolic 100–146; BP diastolic 64–103; PULSE 136–170; O2SAT 99; BMI 30.1
--- NOTE | 2024-03-05 01:27 | PTCARENOTE ---
2054 rt groin figure 8 removed and no bleeding noted at that time. 2232 rt groin saturated with blood. Manual pressure applied for 20 min. Pt AAOx3, SBP 110-120. HR 110-120. Pt denies lightheadedness or dizziness. PA called to evaluate pt. Innoseal
and new dsg applied. No more bleeding noted.
[2024-03-05 04:37] LABS: Hematocrit 47.5 % (39.0-52.0); Hemoglobin 16.6 g/dL (13.0-18.0); Mean Corp Hgb Conc. 34.9 g/dL (33.0-37.0); Mean Corpuscular Hgb 31.9 pg (27.0-31.0); Mean Corpuscular Volume 91.2 fL (80.0-94.0); Mean Platelet Volume 10.4 fL (7.4-10.4); Platelet Count 248 10^3/uL (130-400); Red Blood Cell Count 5.21 10^6/uL (4.70-6.10); Red Cell Dist. Width 13.1 % (11.5-14.5); White Blood Cell Count 10.6 10^3/uL (4.8-10.8)
[2024-03-05 04:56] LABS: Blood Urea Nitrogen 19 mg/dl (9-20); Calcium 9.3 mg/dl (8.4-10.2); Carbon Dioxide 24 mmol/L (22-30); Chloride 102 mmol/L (98-107); Estimated Creatinine Clearance 72 ml/min; Glucose 140 mg/dl (70-99); Magnesium 2.2 mg/dl (1.6-2.3); Potassium 4.7 mmol/L (3.5-5.1); Sodium 137 mmol/L (135-145); eGFR > 60.00
--- NOTE | 2024-03-05 08:31 | W.PN.CD ---
Addendum entered and electronically signed by Emil Branch MD 03/05/24 08:49:
stop losartan as other meds restarted.
Original Note:
Today's Communication / Plan
-
Post pacer. groin site fine
resume Eliquis
stop SC heparin
some mildly accelerated rates
- resume metoprolol but would start at lower dose metoprolol tartrate 26 mg BID will see how BP tolerateds ( he was on Toprol Xl 100mg, Cardizme 120mg and digoxin as outpateitn
Impression / Plan
-
Near syncope.
-Tachybradycardia syndrome.
-Patient has junctional rhythm down to 40s with symptomatic pauses.
-Also has a history of persistent/permanent atrial fibrillation.
-With permanent atrial fibrillation, patient needs to be adequately rate controlled requiring metoprolol, digoxin and diltiazem.
-With symptomatic pauses, we discussed pacemaker.
- leadless pacemaker placed 03/04/24
Leadless PPM
- implant 03/04/24
- right groins site fine
.
Bradycardia.
-As above. Patient is in need of a pacemaker.
.
A-fib. Patient with prior history of A-fib. Suspect persistent or permanent. Recent issues with accelerated rates based on history. Now with bradycardia.
-can start resuming some rate control meds post pacer
- resume eliquis
Hypotension. on presentation - improved.
.
Left ear cellulitis.
-Patient currently on antibiotics additional treatment as directed by primary team
Physical Exam
Vital Signs/Labs
Vital Signs
Temp Pulse Resp BP Pulse Ox
97.4 F 90 14 144/74 94
03/05/24 07:00 03/05/24 06:00 03/05/24 07:00 03/05/24 04:00 03/05/24 07:00
03/04/24 03/05/24 03/06/24
06:59 06:59 06:59
Actual Weight 82.4 kg
03/05/24 03:26
03/05/24 03:26
PT 16.4 Sec (11.4-14.6) H 03/04/24 03:37
INR 1.32 03/04/24 03:37
Magnesium 2.2 mg/dl (1.6-2.3) 03/05/24 03:26
Free T4 0.85 ng/dl (0.78-2.19) 03/02/24 17:20
Digoxin 0.4 ng/ml (0.8-2.0) L 03/02/24 17:20
03/02/24
20:10
Vea-H-Dmtipqiletp Pept 1350
LAB Results
03/02/24 03/02/24 03/03/24
17:20 20:10 02:31
Troponin I 0.018 0.028 D 0.018 D
03/03/24
08:40
Troponin I < 0.012 D
Physical Exam
Constitutional: No acute distress
Cardiovascular: Rhythm/rate is irregular
Respiratory: Wheeze Absent and Rhonchi Absent
GI: Soft and Non tender
Neuro/Psych: Alert
Other: Cath Site (right groin site fine)
Data Reviewed
-
Date of Service: March 05, 2024
Medical Decision Making: Reviewed Test Results
X-Ray/CT/US/MRI/NUC/PET: Report Reviewed by me
Medical Tests (PFT, Pathology etc): Report Reviewed by me
Labs: Labs Reviewed by me
--- NOTE | 2024-03-05 08:47 | W.PN.HOSP.TC ---
Today's Communication/Plan
-
See bold
Assessment / Plan
Assessment / Plan
88y M with PMH significant for A-Fib and venous insufficiency who presents to ED complaining of 'woozy' feeling and near syncope.
Symptomatic Bradycardia
Near Syncope
Tachybradycardia syndrome
- Reported pause of 5 seconds for EMS.
- Now in A-Fib with rates in the 60-70 range with rare pause around 3 seconds.
- Appreciate cardiology input, s/p permanent pacemaker 03/04
Rapid Atrial Fibrillation -probable permanent
- Resumed on xarelto 03/05
- Resumed on metoprolol 25 mg bid, cardizem 30 mg qid, titrate as per cards
Hypotension
� Resolved with IV fluids
- Monitor off IVFs
Coagulopathy
- INR = 3.32 upon admission, now downtrending
Abnormal Lung Sounds
- Rales on exam at bases - ? atelectasis, edema, interstitial.
- Chest x-ray shows cardiomegaly without pulmonary edema, COVID-negative
OAB / BPH
- Hold most medications including Tamsulosin which can contribute to orthostasis.
- Bladder scan protocol.
Left Ear Lobe Cellulitis
- Mild persistent erythema, but no tenderness / increased warmth / etc.
- S/p cefadroxil
Subclinical hypothyroidism
- TSH elevated at 6.77, free T4 normal
- Recommend outpatient repeat thyroid function test in 4-6 weeks
- Would not start thyroid supplementation now given he has tachybradycardia syndrome
DVT Prophylaxis: xarelto
Code Status: Full
Dispo: HH
Total time spent to see the patient on the floor, examine the patient, review data and lab results, discuss treatment plan with patient, nursing staff around 38 minutes.
Physical Exam
General: Obese, no acute distress
HEENT: Normocephalic, Atraumatic, EOMI, MMM
Respiratory: Clear to Auscultation bilaterally
Cardiac: Normal S1/S2, irregularly irregular, tachycardic
GI: Soft, Nontender, Nondistended, Normal Bowel Sounds
Extremities: No Clubbing, Cyanosis, or Edema
Neuro: Nonfocal/Grossly Intact
Anticipated Discharge: 24 - 48 hours
Subjective/Interval History
-
Date of Service: March 05, 2024
Overnight events noted. Patient had right groin bleeding. Denies CP/SOB/palp. No fever, no vomiting.
Objective Data
-
Labs:
Laboratory Results
03/05/24
03:26
WBC 10.6
Hgb 16.6
Hct 47.5
Plt Count 248
Sodium 137
Potassium 4.7
Chloride 102
Carbon Dioxide 24
BUN 19
Creatinine 0.7
Glucose 140 H
Calcium 9.3
Vital Signs:
Vital Signs
Temp Pulse Resp BP Pulse Ox
97.4 F 90 14 144/74 94
03/05/24 07:00 03/05/24 06:00 03/05/24 07:00 03/05/24 04:00 03/05/24 07:00
I&O
03/04/24 03/05/24 03/06/24
06:59 06:59 06:59
Intake Total 240 / 240 250 / 250
Output Total 900 / 900 1325 / 1325
Balance -660 / -660 -1075 / -1075
[2024-03-05] MEDS: COZAAR PO (09:01)
--- NOTE | 2024-03-05 10:02 | PTCARENOTE ---
Addendum entered by Alberta Cordon RN 03/05/24 10:03:
right groin site intact, dsg. D/I, distal pulse weak but palpable.
Original Note:
received patient this am in bed, pleasant. monitor shows Afib with a HR in the 80's, as soon as patient ambulated to chair for breakfast HR 130's, Dr. Burns. aware. patient doesn't feel his heart beating fast. VSS, great appetite.
[2024-03-05] MEDS: DETROL LA 2 MG PO (10:41)
--- NOTE | 2024-03-05 10:57 | W.PN.UPDATE ---
Update Note
Progress Note Update
working with PT and afib rates accelerated.
- IV loprssor x 1
- resuming cardizem short acting today and transition to Cardizem 120mg a day at home
[2024-03-05] MEDS: LOPRESSOR 5 MG IV (11:21)
[2024-03-05] MEDS: FLUSH (NSS) 1 FLUSH IV (11:22)
[2024-03-05] MEDS: CARDIZEM 30 MG PO ×4 (11:22→22:37)
--- NOTE | 2024-03-05 11:24 | PTCARENOTE ---
HR in the 140's, patient is sitting up and with ambulation, Dr. Branch aware, Lopressor 5 mg IV given as ordered and cardizem po given as ordered.
--- NOTE | 2024-03-05 12:12 | CM ---
Chart reviewed. Patient with ^ HR. Patient is independent of ADLS, lives alone in a 1st floor apartment, ambulates with a SPC, 0 [employer]. Patient with a caregiver, Siri, who comes to the house every Friday to help assist with groceries and
cleaning. She also takes the patient to his doctor appointments. Patient also pays a appliance fixer to come to the house every Friday. Patient is interested in VN. Referral sent to [facility]. Plan is for the patient to return home with [facility]
VN. CM to follow
[2024-03-05] MEDS: PROSCAR 5 MG PO (14:11)
[2024-03-05] MEDS: LEXAPRO 5 MG PO (14:11)
[2024-03-05] MEDS: MIRALAX PO (14:51)
[2024-03-05] MEDS: COLACE 100 MG PO ×2 (14:51→22:37)
--- NOTE | 2024-03-05 14:57 | PTCARENOTE ---
patient had skin biopsy on right hand, cleaned with saline and new bandage applied.
--- NOTE | 2024-03-05 16:06 | PTCARENOTE ---
Monitor shows Afib and HR 70 - 90 while sitting.
[2024-03-05] MEDS: XARELTO 20 MG PO (16:45)
[2024-03-05] MEDS: FIBERCON 625 MG PO (19:46)
[2024-03-05] MEDS: LOPRESSOR 25 MG PO (19:47)
--- NOTE | 2024-03-06 01:29 | PTCARENOTE ---
Pt oob in recliner chair most of evening. assisted to bathroom to void. placed to bed at present with bed alarm activated. Right groin site with DDI. Afib on telemetry.
[2024-03-06 06:25] VITALS: BP 127/87
--- NOTE | 2024-03-06 06:57 | W.PN.CD ---
Today's Communication / Plan
-
Overall appears stable. Cardizem short acting put back to Cardizem CD 120 mg a day which was his outpatient dose
Will change Toprol XL back to outpatient dose of 100 mg daily
Ambulate and assess heart rates
Can leave off digoxin for now
Note patient was on Lasix 40 mg a day when he was admitted however that was an increased dose that had been increased a week prior. He previously had been on Lasix 20 mg a day. He does have a history of venous insufficiency.. Weights have been
stable.
Can discharge on Lasix 20 mg a day as needed. Can be resumed if weight increases 3 pounds or if he develops increased edema
Impression / Plan
-
Near syncope.
-Tachybradycardia syndrome.
-Patient has junctional rhythm down to 40s with symptomatic pauses.
-Also has a history of persistent/permanent atrial fibrillation.
-With permanent atrial fibrillation, patient needs to be adequately rate controlled requiring metoprolol, digoxin and diltiazem.
-With symptomatic pauses, we discussed pacemaker.
- leadless pacemaker placed 03/04/24
Leadless PPM
- implant 03/04/24
- right groins site fine
.
Bradycardia.
-As above. Patient is in need of a pacemaker.
.
A-fib. Patient with prior history of A-fib. Suspect persistent or permanent. Recent issues with accelerated rates based on history. Now with bradycardia.
-Patient had accelerated rates with ambulation yesterday. Cardizem restarted and patient also on metoprolol.
-Resume metoprolol at previous outpatient dose
-Resume Cardizem at previous outpatient dose
-Xarelto resumed
Hypotension. on presentation - improved.
.
Left ear cellulitis.
-Patient currently on antibiotics additional treatment as directed by primary team
Physical Exam
Vital Signs/Labs
Vital Signs
Temp Pulse Resp BP Pulse Ox
97.5 F 64 18 127/87 95
03/06/24 06:27 03/06/24 06:25 03/06/24 06:27 03/06/24 06:25 03/06/24 06:25
03/04/24 03/05/24 03/06/24
06:59 06:59 06:59
Actual Weight 82.4 kg 82 kg
03/05/24 03:26
03/05/24 03:26
PT 16.4 Sec (11.4-14.6) H 03/04/24 03:37
INR 1.32 03/04/24 03:37
Magnesium 2.2 mg/dl (1.6-2.3) 03/05/24 03:26
Free T4 0.85 ng/dl (0.78-2.19) 03/02/24 17:20
Digoxin 0.4 ng/ml (0.8-2.0) L 03/02/24 17:20
03/02/24
20:10
Xqi-F-Tmyeklncffb Pept 1350
LAB Results
03/03/24
08:40
Troponin I < 0.012 D
Physical Exam
Constitutional: No acute distress
EENT: Anicteric
Cardiovascular: Rhythm/rate is irregular
Respiratory: Respiratory effort normal and Wheeze Absent
GI: Soft and Non tender
Other: Cath Site (Appears fine)
Data Reviewed
-
Date of Service: March 06, 2024
Medical Decision Making: Reviewed Test Results
Echo: Report Reviewed by me
Medical Tests (PFT, Pathology etc): Report Reviewed by me
Labs: Labs Reviewed by me
--- NOTE | 2024-03-06 08:17 | W.PN.HOSP.TC ---
Today's Communication/Plan
-
Discharge today
Assessment / Plan
Assessment / Plan
88y M with PMH significant for A-Fib and venous insufficiency who presents to ED complaining of 'woozy' feeling and near syncope.
Symptomatic Bradycardia
Near Syncope
Tachybradycardia syndrome
- Reported pause of 5 seconds for EMS.
- Now in A-Fib with rates in the 60-70 range with rare pause around 3 seconds.
- Appreciate cardiology input, s/p permanent pacemaker 03/04
- Follow-up with cardiology in the office
Rapid Atrial Fibrillation -probable permanent
- Resumed on xarelto 03/05
- Heart rate now controlled on home Cardizem 120 mg daily, metoprolol succinate 100 mg daily
- Cardiology recommends discharge on Lasix 20 mg as needed for fluid retention/swelling
Hypotension
� Resolved with IV fluids
- Monitor off IVFs
Coagulopathy
- INR = 3.32 upon admission, now downtrending
Abnormal Lung Sounds
- Rales on exam at bases - ? atelectasis, edema, interstitial.
- Chest x-ray shows cardiomegaly without pulmonary edema, COVID-negative
OAB / BPH
- Hold most medications including Tamsulosin which can contribute to orthostasis.
- Bladder scan protocol.
Left Ear Lobe Cellulitis
- Mild persistent erythema, but no tenderness / increased warmth / etc.
- S/p cefadroxil
Subclinical hypothyroidism
- TSH elevated at 6.77, free T4 normal
- Recommend outpatient repeat thyroid function test in 4-6 weeks
- Would not start thyroid supplementation now given he has tachybradycardia syndrome
DVT Prophylaxis: xarelto
Code Status: Full
Dispo: HH
Physical Exam
General: Obese, no acute distress
HEENT: Normocephalic, Atraumatic, EOMI, MMM
Respiratory: Clear to Auscultation bilaterally
Cardiac: Normal S1/S2, irregularly irregular
GI: Soft, Nontender, Nondistended, Normal Bowel Sounds
Extremities: No Clubbing, Cyanosis, or Edema
Neuro: Nonfocal/Grossly Intact
Anticipated Discharge: Today
Subjective/Interval History
-
Date of Service: March 06, 2024
Patient reports feeling better. No chest pain, shortness of breath, or palpitations. No fever, no vomiting.
Objective Data
-
Vital Signs:
Vital Signs
Temp Pulse Resp BP Pulse Ox
97.5 F 64 18 127/87 95
03/06/24 06:27 03/06/24 06:25 03/06/24 06:27 03/06/24 06:25 03/06/24 06:25
I&O
03/05/24 03/06/24 03/07/24
06:59 06:59 06:59
Intake Total 250 / 250
Output Total 1325 / 1325 400 / 400
Balance -1075 / -1075 -400 / -400
[2024-03-06] MEDS: COLACE 100 MG PO (09:52)
[2024-03-06] MEDS: CARDIZEM CD 120 MG PO (09:52)
[2024-03-06] MEDS: TOPROL XL 100 MG PO (09:53)
[2024-03-06] MEDS: MIRALAX 17 GRAMS PO (09:53)
[2024-03-06] MEDS: DETROL LA 2 MG PO (09:54)
[2024-03-06] MEDS: FLUSH (NSS) 2 FLUSH IV (09:55)
--- NOTE | 2024-03-06 10:25 | W.DCSUMMARY ---
Discharge Summary
Discharge Data
Date of Admission: 03/02/24
Date of Discharge: 03/06/24
-
Pending Results: No
Hospital Course
Discharge diagnosis:
Symptomatic bradycardia
Near syncope
Tachybradycardia syndrome
Rapid atrial fibrillation, probable permanent
Transient hypotension
Coagulopathy
Benign prostatic hypertrophy
Left earlobe cellulitis
Subclinical hypothyroidism
Consults: Cardiology
Procedures:
03/04/2024 permanent pacemaker placement
Hospital course:
88-year-old male with a past medical history of permanent atrial fibrillation on Xarelto and BPH was admitted for near syncope due to symptomatic bradycardia. Patient was also found to be hypotensive. This resolved with IV fluids. His Xarelto,
metoprolol, diltiazem, digoxin were all held. Patient was seen in conjunction with cardiology. He underwent permanent pacemaker placement on 03/04/2024.
Patient's hospital course was complicated by rapid atrial fibrillation post procedure. He was resumed on Xarelto, diltiazem, and metoprolol. His heart rate became controlled. Cardiology recommends patient taking Lasix 20 mg as needed for
edema/weight gain.
Patient was being treated with oral antibiotics for left earlobe cellulitis prior to admission. He completed his antibiotics.
Patient was found to have an elevated INR upon admission. This was monitored, and normalized.
Patient was also found to have subclinical hypothyroidism. TSH was elevated at 6.77, his free T4 was normal. Since patient had rapid atrial fibrillation, he was not started on thyroid supplementation. Would recommend repeat thyroid function test
with his primary care doctor in 4-6 weeks.
Patient is medically stable for discharge. He needs to follow-up with cardiology in the office as scheduled, and his primary care doctor in 1 week.
Disposition: Home with home care
Discharge planning: Required 40 minutes
Discharge Plan
-
Patient Disposition: Home with Home Care
Discharge Diagnosis/Procedures: Tachybradycardia syndrome status post Micra pacemaker implant, near syncope, rapid atrial fibrillation
Condition: Good
Diet: Low Cholesterol and Low Sodium
Driving Restrictions: No driving for 24 hours
Specialty Instructions: Weigh Daily- Call MD for wt gain/loss 3 lbs overnight/5 lbs in 1 week
Activity Restrictions/Additional Instructions:
Cardiology recommends stopping digoxin.
Cardiology also recommends taking Lasix 20 mg daily as needed for swelling or weight gain of 3 pounds.
Please follow-up with your primary care doctor in 2-3 days, and cardiology in the office as scheduled.
Stand Alone Forms: DC Instructions- Cath/EP Lab
Referrals:
[facility] [Outside] (FAX [phone])
Susanne Bashir CRNP [Specified Professional Personl] - 03/17/24 4:20 pm (Groin check appointment)
Navid Lockwood MD [Family Provider] - in two to three days
Prescriptions:
New
polyethylene glycol 3350 17 gram/dose powder
17 g PO BID Qty: 510 0RF
Continued
metoprolol succinate 100 mg tablet extended release 24 hr
100 mg PO DAILY@1399
loperamide [Imodium A-D] 2 mg Tablet
2 mg PO Q4HPRN PRN (Reason: loose stool)
tamsulosin 0.4 mg capsule
0.4 mg PO DAILY@1999
triamcinolone acetonide 0.1 % ointment
1 applic TOPICAL BID
Patient Comments:
apply to areas of eczema
calcium polycarbophil [FiberCon] 625 mg Tablet
625 mg PO DAILY@1999
diltiazem HCl [Cartia XT] 120 mg capsule,extended release 24hr
120 mg PO DAILY@1399
finasteride 5 mg tablet
5 mg PO DAILY@1399
escitalopram oxalate 5 mg tablet
5 mg PO DAILY@1399
trospium 60 mg capsule,extended release 24hr
60 mg PO DAILY@999
Centrum Men 8 mg iron- 200 mcg-600 mcg Tablet
1 tab PO DAILY@1999
Xarelto 20 mg tablet
20 mg PO DAILY@1400
Changed
furosemide 40 mg tablet
20 mg PO DAILY@1400 PRN (Reason: Fluid Retention/Swelling) Qty: 0 0RF
Discontinued
cefadroxil 1 gram tablet
1 g PO BID
Patient Comments:
filled 02/24/24 #14 x7 days
digoxin 125 mcg (0.125 mg) tablet
125 mcg PO DAILY@1400
Discharge Orders:
Discharge Patient (As Directed); Ordered 03/06/24
Ordered By: Arsenio Burns
Care Plan Goals
Care Plan Goals:
Problem: Readiness for enhanced knowledge related to diagnosis and treatment plan
Goal: Understand your diagnosis and treatment plan needs, including medications if applicable.
Instructions: Know your diagnosis, underlying causes and treatment plan options, including medications if applicable. Consult with your health care team to learn about your diagnosis and treatment plan, including medications if applicable.
Discharge Date and Time
Discharge Date/Time: 03/06/24 16:20
Print Language: LAO
--- NOTE | 2024-03-06 12:05 | PTCARENOTE ---
Patient fell back to sleep this morning, given morning meds when he awoke and ate breakfast. Right groin dressing is dry and intact. Assisted oob to the bathroom with rolling walker. Patient is for discharge today.
[2024-03-06 12:28] VITALS: BP 110/69
[2024-03-06] MEDS: PROSCAR 5 MG PO (14:23)
[2024-03-06] MEDS: LEXAPRO 5 MG PO (14:23)
[2024-03-06] MEDS: XARELTO 20 MG PO (14:23)
--- NOTE | 2024-03-06 16:27 | PTCARENOTE ---
Echo done as ordered and patient ok for d/c as per cardiology. Reviewed discharge instructions with the patient's caregiver Siri and she states her understanding. Patient discharged home with his caregiver with VN services.
== END 2024-03-06 16:20 | disposition home health service (06) | DRG 229 ==
LOC: IVU 20:20
PROVIDERS: Internal Medicine Cardiovascular Disease; Nurse Practitioner Adult Health; ADMITTING PHYSICIAN Hospitalist; ATTENDING PHYSICIAN Family Medicine; CONSULT PHYSICIAN Internal Medicine Cardiovascular Disease; EMERGENCY PHYSICIAN Emergency Medicine; FAMILY PHYSICIAN Family Medicine
PROC: 02HK3NZ Insertion of Intracardiac Pacemaker into Right Ventricle, Percutaneous Approach (ICD-10-PCS; 2024-03-04)
DX: I49.5 Sick sinus syndrome (principal); Z00.6 Encounter for examination for normal comparison and control in clinical research program; D68.9 Coagulation defect, unspecified; I48.21 Permanent atrial fibrillation; I95.9 Hypotension, unspecified; N40.0 Benign prostatic hyperplasia without lower urinary tract symptoms; H60.12 Cellulitis of left external ear; E03.8 Other specified hypothyroidism; I87.2 Venous insufficiency (chronic) (peripheral); N32.81 Overactive bladder; R09.89 Other specified symptoms and signs involving the circulatory and respiratory systems; K40.90 Unilateral inguinal hernia, without obstruction or gangrene, not specified as recurrent; E86.1 Hypovolemia; E86.0 Dehydration; T50.1X5A Adverse effect of loop [high-ceiling] diuretics, initial encounter; F03.90 Unspecified dementia, unspecified severity, without behavioral disturbance, psychotic disturbance, mood disturbance, and anxiety; Z11.52 Encounter for screening for COVID-19; Z79.01 Long term (current) use of anticoagulants
CPT/HCPCS: 33274; 71045; 80048; 80053; 80162; 83735; 83880; 84439; 84443; 84484; 85025; 85027; 85610; 87811; 93005; 93306; 97162; 97166; 99291; C1769; C1786; C1894; Q9967